=== PATIENT | female | born 1980 | race Caucasian/White ===

== ENCOUNTER 2016-11-03 07:05 | Emergency (ER) | payer OTHER ==
[2016-11-03 07:11] VITALS: BP 120/80; PULSE 65; TEMP 98.3; BMI 29.7
--- NOTE | 2016-11-03 07:12 | PDOC ---
History of Present Illness - General Chief Complaint: Lightheaded Stated Complaint: DIZZINESS/N/V Time Seen by Provider: 11/03/16 07:11 History Source: Patient - History of Present Illness Initial Comments: 11/03/16 07:23 Pt presents to the ED complaining of a 12 hour history of dizziness. Patient reports feeling off balance and nauseated and has had multiple episodes of non bloody, non bilious vomiting. Dizziness is worse with moving from lying down to standing, unaffected by turning her head. Denies fever, abdominal pain. Denies headache. 11/03/16 07:31 Past History - Past Medical History Allergies/Adverse Reactions: Allergies Allergy/AdvReac Type Severity Reaction Status Date / Time No Known Allergies Allergy Verified 09/24/15 19:31 Home Medications: Ambulatory Orders Meclizine HCl [Antivert -] 25 mg PO QID #28 tablet 11/03/16 Norethindrone-E.estradiol-Iron [Tilia Fe 28 Tablet] 1 each PO DAILY 11/03/16 - Family Disease History Comment:: 11/03/16 07:27 Patient denies medical problems. - Reproductive History (#): 6 Para: 2 Therapeutic (s) & number: Yes (X2) Spontaneous : 1 - Psycho/Social/Smoking Cessation Hx Anxiety: No Suicidal Ideation: No Smoking Status: No Smoking History: Never smoked Number of Cigarettes Smoked Daily: 0 Hx Alcohol Use: No Drug/Substance Use Hx: No Substance Use Type: None Review of Systems - Review of Systems Is the patient limited French proficient: No HEENTM: No: Symptoms Reported, See HPI, Eye Pain, Blurred Vision, Tearing, Recent change in vision, Double Vision, Cataracts, Ear Pain, Ocular Prothesis, Ear Discharge, Nose Pain, Nose Congestion, Tinnitus, Nose Bleeding, Hearing Loss , Throat Pain, Throat Swelling, Mouth Pain, Dental Problems, Difficulty Swallowing, Mouth Swelling, Other ABD/GI: Yes: Nausea, Vomiting Neurological: Yes: Unsteady Gait, Dizziness *Physical Exam - Physical Exam General Appearance: Yes: Nourished, Appropriately Dressed HEENT: positive: EOMI Neck: positive: Supple Respiratory/Chest: positive: Lungs Clear, Normal Breath Sounds Cardiovascular: positive: Regular Rhythm, Regular Rate Gastrointestinal/Abdominal: positive: Flat, Soft. 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 ) ED Treatment Course - LABORATORY CBC & Chemistry Diagram: 11/03/16 07:43 11/03/16 07:43 Medical Decision Making - Medical Decision Making 11/03/16 07:31 Pt presents to the ED complaining of dizziness, which seems to be more indicative of lightheadness than vertigo. Neurologically intact. Will check labs and give IV hydration, treat with zofran and meclizine and reassess. 11/03/16 09:16 Patient feels improved. Dizziness has resolved. Lab work is within normal limits. Will discharge home. *DC/Admit/Observation/Transfer Diagnosis at time of Disposition: Vertigo - Discharge Dispostion Disposition: HOME Condition at time of disposition: Good Admit: No - Prescriptions Prescriptions: Meclizine HCl [Antivert -] 25 mg PO QID #28 tablet - Referrals Referrals: STAFF,NOT ON [Primary Care Provider] - - Patient Instructions Printed Discharge Instructions: DI for Vertigo Additional Instructions: Return to the ED for severe dizziness, unable to stand or walk, severe nausea and vomiting, new or worsening symptoms.
[2016-11-03] MEDS ORDERED: ONDANSETRON 4 MG/2 ML VIAL IVPUSH ONE (07:21)
[2016-11-03] MEDS ORDERED: SODIUM CHLORIDE 1,000 ML IV STA (07:21)
[2016-11-03] MEDS ORDERED: MECLIZINE HCL 25 MG TABLET (FP) PO ONE (07:21)
[2016-11-03] MEDS ORDERED: ONDANSETRON 4 MG/2 ML VIAL ONE (07:38)
[2016-11-03] MEDS ORDERED: MECLIZINE HCL 25 MG TABLET (FP) ONE (07:38)
[2016-11-03 07:48] LABS: BASOPHIL 0.7 % (0-2.0); EOSINOPHIL 0.8 % (0-4.5); MCH 27.9 pg (25.7-33.7); MCHC 34.4 g/dl (32.0-36.0); MEAN CELL VOLUME 81.1 fl (80-96); MEAN PLT VOLUME 8.4 fl (7.5-11.1); NEUTROPHILS 56.6 % (42.8-82.8); PLATELET COUNT 293 K/MM3 (134-434); RDW 12.9 % (11.6-15.6); WHITE BLOOD COUNT 6.4 K/mm3 (4.0-10.8)
[2016-11-03 08:06] LABS: ALBUMIN 4.1 g/dl (3.5-5.0); ALK PHOS 68 U/L (32-92); ANION GAP 7 (8-16); BILIRUBIN,TOTAL 1.1 mg/dl (0.2-1.0); CALCIUM 9.3 mg/dl (8.4-10.2); CO2 26 mmol/L (22-28); CREATININE 0.6 mg/dl (0.6-1.3); GLUCOSE,RANDOM 99 mg/dl (74-106); SGOT/AST 42 U/L (10-42); SGPT/ALT 61 U/L (10-40); TOT PROT 7.3 g/dl (6.4-8.3)
== END 2016-11-03 09:40 | disposition home or self-care (01) ==
LOC: FER 07:05
PROC: 3E033GC Introduction of Other Therapeutic Substance into Peripheral Vein, Percutaneous Approach (ICD-10-PCS; principal; 2016-11-03)
PROC: 3E0337Z Introduction of Electrolytic and Water Balance Substance into Peripheral Vein, Percutaneous Approach (ICD-10-PCS; 2016-11-03)
DX: R42 Dizziness and giddiness (principal)
CPT/HCPCS: 36415; 80053; 84702; 85025; 99282-25